=== PATIENT | female | born 1970 | race American Indian/Alaskan Native ===

== ENCOUNTER 2018-11-28 18:15 | Emergency (ER) | payer OTHER ==
--- NOTE | 2018-11-28 19:43 | Emergency Department Report ---
Blank Doc - Documentation Documentation: SOB started 1 week ago. Seen in ER on 11/18/18 on [facility]. Chest tightness and burning pain.
[2018-11-28] MEDS ORDERED: PROVENTIL IH ONE (21:38)
[2018-11-28] MEDS ORDERED: IBUPROFEN PO ONE (21:38)
[2018-11-28] MEDS ORDERED: DELTASONE PO ONE (21:38)
--- NOTE | 2018-11-28 21:45 | XRay Report ---
PROCEDURES: XR CHEST 1V AP TECHNIQUE: AP portable view of the chest. HISTORY: chest tightness and SOB COMPARISON: None FINDINGS: Lines, tubes, and devices: N/A Lungs and pleura: Trachea is normal in position. Lungs are clear of infiltrate, pleural effusion, vas cular congestion, or pneumothorax. Cardiomediastinal silhouette: Cardiac and mediastinal silhouettes are unremarkable. Other: Bony structures are intact. IMPRESSION: No acute cardiopulmonary process seen. This document is electronically signed by Connie Good MD., November 28 2018 09:43:28 PM ET
--- NOTE | 2018-11-28 22:44 | Emergency Department Report ---
ED Shortness of Breath HPI - General Chief Complaint: Dyspnea/Respdistress Stated Complaint: SOB/HARD TO BREATH Time Seen by Provider: 11/28/18 21:37 Source: patient Mode of arrival: Ambulatory Limitations: No Limitations - History of Present Illness Initial Comments: pt duke 48 y/o aaf with hx bronchitis who presents for sob x 2 week tx for URI 1 week ago but symptom persist pt is out of albuterol ihaler, there is no cp no dizziness no n/v no diaphoresis no fever does endorse cough sore throat and head congestion. MD Complaint: shortness of breath Onset/Timin -: week(s) Severity: moderate Pain Scale: 5 Quality: aching Consistency: constant Worsens With: other (environmental exposure ) Known History Of: other (bronchitis) Associated Symptoms: cough Treatments Prior to Arrival: none - Related Data Home Oxygen Therapy: No Home Medications Medication Instructions Recorded Confirmed Last Taken Aspirin [Lo-Dose Aspirin EC] 81 mg PO DAILY 08/13/18 08/13/18 Unknown Ferrous Sulfate [Feosol 325 MG tab] 325 mg PO DAILY 08/13/18 08/13/18 Unknown hydroCHLOROthiazide [HCTZ] 25 mg PO DAILY 08/13/18 08/13/18 Unknown Previous Rx's Medication Instructions Recorded Last Taken Type Butalb/Acetamin/Caff 50-325-40 1 tab PO Q6HR PRN #10 tab 08/13/18 Unknown Rx [Fioricet] ALBUTEROL Inhaler(NF) [VENTOLIN 2 puff IH Q4H PRN #1 inha 11/28/18 Unknown Rx Inhaler(NF)] Azithromycin [Zithromax Z-KIRILL] 250 mg PO DAILY #6 tab 11/28/18 Unknown Rx Benzonatate [Tessalon Perle] 100 mg PO Q8H PRN #30 capsule 11/28/18 Unknown Rx Ibuprofen 800 mg PO TID PRN #30 tablet 11/28/18 Unknown Rx predniSONE [Deltasone] 40 mg PO QDAY 5 Days #10 tab 11/28/18 Unknown Rx Allergies Allergy/AdvReac Type Severity Reaction Status Date / Time No Known Allergies Allergy Verified 11/20/16 18:22 ED Review of Systems ROS: Stated complaint: SOB/HARD TO BREATH Other details as noted in HPI Constitutional: denies: chills, fever ENT: ear pain, throat pain, congestion Respiratory: cough, shortness of breath, wheezing Cardiovascular: denies: chest pain, palpitations Endocrine: no symptoms reported Gastrointestinal: denies: abdominal pain, nausea, diarrhea Genitourinary: denies: urgency, dysuria, discharge Musculoskeletal: denies: back pain, joint swelling, arthralgia Skin: denies: rash, lesions Neurological: denies: headache, weakness, paresthesias Psychiatric: as per HPI Hematological/Lymphatic: denies: easy bleeding, easy bruising ED Past Medical Hx - Past Medical History Hx Hypertension: Yes Additional medical history: Ectopic , Anemia - Surgical History Additional Surgical History: . tubal ligation and reversal - Social History Smoking Status: Never Smoker Substance Use Type: None - Medications Home Medications: Home Medications Medication Instructions Recorded Confirmed Last Taken Type Aspirin [Lo-Dose Aspirin EC] 81 mg PO DAILY 08/13/18 08/13/18 Unknown History Butalb/Acetamin/Caff 50-325-40 1 tab PO Q6HR PRN #10 tab 08/13/18 Unknown Rx [Fioricet] Ferrous Sulfate [Feosol 325 MG tab] 325 mg PO DAILY 08/13/18 08/13/18 Unknown History hydroCHLOROthiazide [HCTZ] 25 mg PO DAILY 08/13/18 08/13/18 Unknown History ALBUTEROL Inhaler(NF) [VENTOLIN 2 puff IH Q4H PRN #1 inha 11/28/18 Unknown Rx Inhaler(NF)] Azithromycin [Zithromax Z-KIRILL] 250 mg PO DAILY #6 tab 11/28/18 Unknown Rx Benzonatate [Tessalon Perle] 100 mg PO Q8H PRN #30 capsule 11/28/18 Unknown Rx Ibuprofen 800 mg PO TID PRN #30 tablet 11/28/18 Unknown Rx predniSONE [Deltasone] 40 mg PO QDAY 5 Days #10 tab 11/28/18 Unknown Rx ED Physical Exam - General Limitations: No Limitations General appearance: alert, in no apparent distress - Head Head exam: Present: atraumatic, normocephalic - Eye Eye exam: Present: normal appearance, PERRL, EOMI Pupils: Present: normal accommodation - ENT ENT exam: Present: normal orophraynx, mucous membranes moist, TM's normal bilaterally, normal external ear exam - Expanded ENT Exam Expanded Throat exam: Positive: tonsillar erythema, tonsillomegaly, other (uvula midline no exudate no lesions no stridor now wheezing ). Negative: tonsillar exudate, R peritonsillar mass, L peritonsillar mass - Neck Neck exam: Present: normal inspection, full ROM. Absent: tenderness, meningismus, lymphadenopathy, thyromegaly - Respiratory Respiratory exam: Present: normal lung sounds bilaterally. Absent: respiratory distress, wheezes, stridor, chest wall tenderness - Cardiovascular Cardiovascular Exam: Present: regular rate, normal rhythm, normal heart sounds. Absent: systolic murmur, diastolic murmur, rubs, gallop - GI/Abdominal GI/Abdominal exam: Present: soft, normal bowel sounds - Rectal Rectal exam: Present: deferred - Extremities Exam Extremities exam: Present: normal inspection - Back Exam Back exam: Present: normal inspection, full ROM. Absent: CVA tenderness (R), CVA tenderness (L) - Neurological Exam Neurological exam: Present: alert, oriented X3, CN II-XII intact, normal gait, motor sensory deficit, reflexes normal - Psychiatric Psychiatric exam: Present: normal affect, normal mood - Skin Skin exam: Present: warm, dry, intact, normal color. Absent: rash ED Course Vital Signs 11/28/18 11/28/18 19:40 21:56 Temperature 98.3 F Pulse Rate 102 H Respiratory 16 18 Rate Blood Pressure 150/101 ED Medical Decision Making - Radiology Data Radiology results: report reviewed, image reviewed cc: MAYTE WALKER Fluoro Time In Minutes: PROCEDURES: XR CHEST 1V AP TECHNIQUE: AP portable view of the chest. HISTORY: chest tightness and SOB COMPARISON: None FINDINGS: Lines, tubes, and devices: N/A Lungs and pleura: Trachea is normal in position. Lungs are clear of infiltrate, pleural effusion, vascular congestion, or pneumothorax. Cardiomediastinal silhouette: Cardiac and mediastinal silhouettes are unremarkable. Other: Bony structures are intact. IMPRESSION: No acute cardiopulmonary process seen. This document is electronically signed by Connie Good MD., November 28 2018 09:43:28 PM ET Transcribed By: [facility] Dictated By: CONNIE GOOD MD Electronically Authenticated By: CONNIE GOOD MD Signed Date/Time: 11/28/182144 DD/ 32 TD/TT: 11/28/182032 - Medical Decision Making This is bronchtis cxr no infiltrate no opacities plan refill albuterol , prednisone, zpack, ibuprofen, tessalon pearls. follow up with pcp in 2-3 days return to emergency if symptoms worsen. pt does have dx of htn has not take htn medications today advised to take medication upon arrival to home , pt verbalized agreement and understanding of same. Critical care attestation.: If time is entered above; I have spent that time in minutes in the direct care of this critically ill patient, excluding procedure time. ED Disposition Clinical Impression: Bronchitis Disposition: - TO HOME OR SELFCARE Is pt being admited?: No Does the pt Need Aspirin: No Condition: Stable Instructions: Chronic Bronchitis (ED), Upper Respiratory Infection (ED) Prescriptions: predniSONE [Deltasone] 40 mg PO QDAY 5 Days #10 tab Ibuprofen 800 mg PO TID PRN #30 tablet PRN Reason: pain Benzonatate [Tessalon Perle] 100 mg PO Q8H PRN #30 capsule PRN Reason: Cough ALBUTEROL Inhaler(NF) [VENTOLIN Inhaler(NF)] 2 puff IH Q4H PRN #1 inha PRN Reason: shortness of breath wheezing Azithromycin [Zithromax Z-KIRILL] 250 mg PO DAILY #6 tab Referrals: ZAKIA ULRICH MD [Primary Care Provider] - 3-5 Days Forms: Work/School Release Form(ED) Time of Disposition: 22:51
[2018-11-28 23:26] VITALS: BP 146/90
== END 2018-11-28 23:26 | disposition home or self-care (01) ==
LOC: ED 18:15
DX: J40 Bronchitis, not specified as acute or chronic (principal); I10 Essential (primary) hypertension; D64.9 Anemia, unspecified; Z98.51 Tubal ligation status
CPT/HCPCS: 71045; 94640; 99283; J7512

== ENCOUNTER 2019-04-07 11:28 | Emergency (ER) | payer SELFPAY ==
[2019-04-07 11:39] VITALS: BP 149/77
--- NOTE | 2019-04-07 11:42 | Event Note ---
ED Screening Note Date of service: 04/07/19 Time: 11:37 ED Screening Note: This is a 48 y.o. F. that presents to the ER with pruitic rash to BLE and BUE. Patient states she returned home from [facility] with rash. She reports 2 other people in room have similar symptoms. Rash is intermittent. Taking OTC medication with no improvement of symptoms. This initial assessment/diagnostic orders/clinical plan/treatment(s) is/are subject to change based on patients health status, clinical progression and re- assessment by fellow clinical providers in the ED. Further treatment and workup at subsequent clinical providers discretion. Patient/guardian urged not to elope from the ED as their condition may be serious if not clinically assessed and managed. Initial orders include: ACC for further evaluation
--- NOTE | 2019-04-07 11:42 | Emergency Department Report ---
Chief Complaint: Skin Rash Stated Complaint: SKIN BREAKING OUT IN BUMPS Time Seen by Provider: 04/07/19 11:37 - HPI History of Present Illness: This is a 48 y.o. F. that presents to the ER with pruitic rash to BLE and BUE. Patient states she returned home from [facility] with rash. She reports 2 other people in room have similar symptoms. Rash is intermittent. She is taking OTC medication with no improvement of symptoms. She also request refills on blood pressure medication HCTZ 25 mg po daily. She denies difficulty swallowing, shortness of breath. - ROS Review of Systems: Skin: Pruitic rash to bilateral upper and lower extremity - Exam Vital Signs: Vital Signs 04/07/19 11:37 Temperature 97.9 F Pulse Rate 85 Respiratory 15 Rate Blood Pressure 149/77 [Left] O2 Sat by Pulse 98 Oximetry Physical Exam: GENERAL: The patient is well looking, in no acute distress. CHEST: Air entry is adequate bilaterally with no rhonchi, and crackles. HEART: Sounds 1 and 2 are heard and are normal. Regular rate and rhythm, no tachycardic, murmurs, gallops, or rubs. ABDOMEN: Soft and nontender. Bowel sounds are present and normal. There is no hepatosplenomegaly. SKIN: Maculopapular rash to BUE & BLE, nontender, no swelling or surrounding cellulitis. EXTREMITIES: Without edema, cyanosis, or clubbing. MSE screening note: Focused history and physical exam performed. Due to findings the following was ordered: ED Medical Decision Making - Medical Decision Making This patient was seen by this provider. This is a non-medical emergency complaint. Vitals are stable and patient is in no acute distress. Rash appear to be possible bed bugs. Patient breathing and drinking without distress with no concerns of anaphylaxis. Start vistaril, medrol dose pack, and HCTZ. Patient discharged home stable. Follow up with PCP. ED Disposition for MSE Clinical Impression: Pruritic rash, Medication refill Insect bite Qualifiers: Encounter type: initial encounter Site of insect bite: unspecified site Qualified Code(s): W57.XXXA - Bitten or stung by nonvenomous insect and other nonvenomous arthropods, initial encounter Disposition: - TO HOME OR SELFCARE Is pt being admited?: No Does the pt Need Aspirin: No Condition: Stable Instructions: Insect Bite or Sting (ED), Hypertension (ED) Additional Instructions: Follow up with a primary care doctor for additional refills of blood pressure medication. Prescriptions: hydroCHLOROthiazide [HCTZ] 25 mg PO QDAY #30 tablet methylPREDNISolone [Medrol 4MG DOSEPAK (21 tabs)] 4 mg PO DAILY #1 tab.ds.pk hydrOXYzine PAMOATE [Vistaril] 25 mg PO Q6HR PRN #20 capsule PRN Reason: Itching Referrals: ZAKIA ULRICH MD [Primary Care Provider] - 3-5 Days [facility] [Outside] - 3-5 Days [facility] [Outside] - 3-5 Days [facility] [Outside] - 3-5 Days Forms: Work/School Release Form(ED) Time of Disposition: 12:27
== END 2019-04-07 12:37 | disposition home or self-care (01) ==
LOC: ED 11:28
DX: S80.862A Insect bite (nonvenomous), left lower leg, initial encounter (principal); S80.861A Insect bite (nonvenomous), right lower leg, initial encounter; S60.562A Insect bite (nonvenomous) of left hand, initial encounter; S60.561A Insect bite (nonvenomous) of right hand, initial encounter; Z76.0 Encounter for issue of repeat prescription; W57.XXXA Bitten or stung by nonvenomous insect and other nonvenomous arthropods, initial encounter; Y93.89 Activity, other specified; Y92.89 Other specified places as the place of occurrence of the external cause; Y99.8 Other external cause status

== ENCOUNTER 2020-05-26 14:58 | Emergency (ER) | payer SELFPAY ==
[2020-05-26] MEDS ORDERED: amLODIPine 5 MG TAB PO ONE (16:17)
--- NOTE | 2020-05-26 16:19 | Emergency Department Report ---
ED General Adult HPI - General Chief complaint: High BP Stated complaint: HYPERTENSION Time Seen by Provider: 05/26/20 16:13 Source: patient Mode of arrival: Ambulatory Limitations: No Limitations - History of Present Illness Initial comments: Patient presents to the emergency department with a chief complaint of a headache for the last 2 days and elevated blood pressure. Upon arrival to the ED the patient's blood pressure was 228/117. Patient states she has a history of hypertension and takes hydrochlorothiazide daily. Hydrochlorothiazide is 25 mg. Patient describes a headache as throbbing in nature and denies any radiation of the headache. She denies this being the worst headache of her life. -: Gradual Location: head Severity scale (0 -10): 4 Quality: other (throbbing) Consistency: constant Improves with: none Worsens with: none Associated Symptoms: denies other symptoms Treatments Prior to Arrival: none - Related Data Home Medications Medication Instructions Recorded Confirmed Last Taken Aspirin [Lo-Dose Aspirin EC] 81 mg PO DAILY 08/13/18 08/13/18 Unknown Ferrous Sulfate [Feosol 325 MG tab] 325 mg PO DAILY 08/13/18 08/13/18 Unknown hydroCHLOROthiazide [HCTZ] 25 mg PO DAILY 08/13/18 08/13/18 Unknown Previous Rx's Medication Instructions Recorded Last Taken Type Butalb/Acetamin/Caff 50-325-40 1 tab PO Q6HR PRN #10 tab 08/13/18 Unknown Rx [Fioricet] ALBUTEROL Inhaler(NF) [VENTOLIN 2 puff IH Q4H PRN #1 inha 11/28/18 Unknown Rx Inhaler(NF)] Azithromycin [Zithromax Z-KIRILL] 250 mg PO DAILY #6 tab 11/28/18 Unknown Rx Benzonatate [Tessalon Perle] 100 mg PO Q8H PRN #30 capsule 11/28/18 Unknown Rx Ibuprofen [Ibuprofen 800] 800 mg PO TID PRN #30 tablet 11/28/18 Unknown Rx predniSONE [Deltasone] 40 mg PO QDAY 5 Days #10 tab 11/28/18 Unknown Rx hydrOXYzine PAMOATE [Vistaril] 25 mg PO Q6HR PRN #20 capsule 04/07/19 Unknown Rx hydroCHLOROthiazide [HCTZ] 25 mg PO QDAY #30 tablet 04/07/19 Unknown Rx methylPREDNISolone [Medrol 4MG 4 mg PO DAILY #1 tab.ds.pk 04/07/19 Unknown Rx DOSEPAK (21 tabs)] Amlodipine Besylate [Norvasc] 5 mg PO DAILY #30 tablet 05/26/20 Unknown Rx Allergies Allergy/AdvReac Type Severity Reaction Status Date / Time No Known Allergies Allergy Verified 11/20/16 18:22 ED Review of Systems ROS: Stated complaint: HYPERTENSION Other details as noted in HPI Comment: All other systems reviewed and negative Constitutional: denies: chills, fever Eyes: denies: eye pain, eye discharge, vision change ENT: denies: ear pain, throat pain Respiratory: denies: cough, shortness of breath, wheezing Cardiovascular: denies: chest pain, palpitations Endocrine: no symptoms reported Gastrointestinal: denies: abdominal pain, nausea, diarrhea Genitourinary: denies: urgency, dysuria, discharge Musculoskeletal: denies: back pain, joint swelling, arthralgia Skin: denies: rash, lesions Neurological: headache. denies: weakness, paresthesias Psychiatric: denies: anxiety, depression Hematological/Lymphatic: denies: easy bleeding, easy bruising ED Past Medical Hx - Past Medical History Hx Hypertension: Yes Additional medical history: Ectopic , Anemia - Surgical History Additional Surgical History: . tubal ligation and reversal - Social History Smoking Status: Never Smoker - Medications Home Medications: Home Medications Medication Instructions Recorded Confirmed Last Taken Type Aspirin [Lo-Dose Aspirin EC] 81 mg PO DAILY 08/13/18 08/13/18 Unknown History Butalb/Acetamin/Caff 50-325-40 1 tab PO Q6HR PRN #10 tab 08/13/18 Unknown Rx [Fioricet] Ferrous Sulfate [Feosol 325 MG tab] 325 mg PO DAILY 08/13/18 08/13/18 Unknown History hydroCHLOROthiazide [HCTZ] 25 mg PO DAILY 08/13/18 08/13/18 Unknown History ALBUTEROL Inhaler(NF) [VENTOLIN 2 puff IH Q4H PRN #1 inha 11/28/18 Unknown Rx Inhaler(NF)] Azithromycin [Zithromax Z-KIRILL] 250 mg PO DAILY #6 tab 11/28/18 Unknown Rx Benzonatate [Tessalon Perle] 100 mg PO Q8H PRN #30 capsule 11/28/18 Unknown Rx Ibuprofen [Ibuprofen 800] 800 mg PO TID PRN #30 tablet 11/28/18 Unknown Rx predniSONE [Deltasone] 40 mg PO QDAY 5 Days #10 tab 11/28/18 Unknown Rx hydrOXYzine PAMOATE [Vistaril] 25 mg PO Q6HR PRN #20 capsule 04/07/19 Unknown Rx hydroCHLOROthiazide [HCTZ] 25 mg PO QDAY #30 tablet 04/07/19 Unknown Rx methylPREDNISolone [Medrol 4MG 4 mg PO DAILY #1 tab.ds.pk 04/07/19 Unknown Rx DOSEPAK (21 tabs)] Amlodipine Besylate [Norvasc] 5 mg PO DAILY #30 tablet 05/26/20 Unknown Rx ED Physical Exam - General Limitations: No Limitations General appearance: alert, in no apparent distress - Head Head exam: Present: atraumatic, normocephalic - Eye Eye exam: Present: normal appearance, PERRL, EOMI - ENT ENT exam: Present: mucous membranes moist - Neck Neck exam: Present: normal inspection, other (No carotid bruit) - Respiratory Respiratory exam: Present: normal lung sounds bilaterally. Absent: respiratory distress - Cardiovascular Cardiovascular Exam: Present: regular rate, normal rhythm. Absent: systolic murmur, diastolic murmur, rubs, gallop - GI/Abdominal GI/Abdominal exam: Present: soft, normal bowel sounds. Absent: distended, tenderness - Extremities Exam Extremities exam: Present: normal inspection - Back Exam Back exam: Present: normal inspection - Neurological Exam Neurological exam: Present: alert, oriented X3, CN II-XII intact. Absent: motor sensory deficit - Psychiatric Psychiatric exam: Present: normal affect, normal mood - Skin Skin exam: Present: warm, dry, intact, normal color. Absent: rash ED Course Vital Signs 05/26/20 05/26/20 15:21 17:09 Temperature 98.0 F Pulse Rate 87 80 Respiratory 18 Rate Blood Pressure 228/117 145/85 O2 Sat by Pulse 99 Oximetry ED Medical Decision Making - Lab Data Result diagrams: 05/26/20 16:25 Lab Results 05/26/20 Range/Units 16:25 Sodium 137 (137-145) mmol/L Potassium 3.8 (3.6-5.0) mmol/L Chloride 96.3 L (98-107) mmol/L Carbon Dioxide 27 (22-30) mmol/L Anion Gap 18 mmol/L BUN 9 (7-17) mg/dL Creatinine 0.5 L (0.6-1.2) mg/dL Estimated GFR > 60 ml/min BUN/Creatinine Ratio 18 % Glucose 97 (65-100) mg/dL Calcium 9.6 (8.4-10.2) mg/dL - Radiology Data Radiology results: report reviewed - Medical Decision Making discussed results with patient Critical care attestation.: If time is entered above; I have spent that time in minutes in the direct care of this critically ill patient, excluding procedure time. ED Disposition Clinical Impression: Hypertension, Headache Disposition: - TO HOME OR SELFCARE Is pt being admited?: No Does the pt Need Aspirin: No Condition: Stable Instructions: Hypertension (ED) Additional Instructions: return if worse Prescriptions: Amlodipine Besylate [Norvasc] 5 mg PO DAILY #30 tablet Referrals: PRIMARY MD SUKHDEEP [Primary Care Provider] - 3-5 Days KATHY MELTON MD [Staff Physician] - 3-5 Days Time of Disposition: 18:55
[2020-05-26 17:05] LABS: Blood Urea Nitrogen 9 mg/dL (7-17); Calcium 9.6 mg/dL (8.4-10.2); Hemolysis Index 1
[2020-05-26 17:14] LABS: BUN/Creatinine Ratio 18
--- NOTE | 2020-05-26 18:50 | Cat Scan Report ---
CT BRAIN: 05/26/2020 INDICATION / CLINICAL INFORMATION: Hypertensive Urgency. COMPARISON: 08/13/2018 FINDINGS: BRAIN/INTRACRANIAL STRUCTURES: Unenhanced CT images of the brain demonstrate no evidence of acute int racranial abnormality. Ventricles and sulci are normal in size and shape. There is no evidence of hemorrhage or mass. There are no abnormal extra-axial fluid collections. EXTRACRANIAL STRUCTURES: Unremarkable. IMPRESSION: No acute abnormality. There is been no significant change when compared to the prior exam. All CT scans at this location are performed using dose reduction to ALARA by means of automated expos ure control. Signer Name: Ede Sapp MD Signed: 05/26/2020 6:45 PM Workstation Name: [id number]
[2020-05-26 19:49] VITALS: BP 157/92
== END 2020-05-26 19:38 | disposition home or self-care (01) ==
LOC: ED 14:58
DX: I10 Essential (primary) hypertension (principal); Z98.51 Tubal ligation status; Z79.82 Long term (current) use of aspirin; Z79.899 Other long term (current) drug therapy
CPT/HCPCS: 36415; 70450; 80048

== ENCOUNTER 2021-09-18 15:56 | Emergency (ER) | payer SELFPAY | END 2021-09-19 04:30 | disposition left against medical advice (07) | LOC: ED 15:56 | DX: R42 Dizziness and giddiness (principal); Z53.21 Procedure and treatment not carried out due to patient leaving prior to being seen by health care provider ==